=== PATIENT | male | born 1960 | race Two or more races ===

== ENCOUNTER 2024-12-29 23:56 | Inpatient (IN) | payer OTHER ==
[~2024-12-29] VITALS: Ht 182.9 cm; Wt 24.9 kg
[2024-12-30] MEDS ORDERED: XOPENEX HFA15 GM IH (00:17)
[2024-12-30] MEDS ORDERED: BUDESONIDE0.25 MG/2 (00:17)
[2024-12-30] MEDS ORDERED: XANAX2 MG PO (00:18)
[2024-12-30] MEDS ORDERED: NASAL MIST126 ML IH (00:18)
[2024-12-30] MEDS ORDERED: ARMOUR THYROID30 M1 PO (00:19)
[2024-12-30] MEDS ORDERED: COZAAR25 MG PO (00:20)
[2024-12-30] MEDS ORDERED: DEXILANT60 MG PO (00:21)
--- NOTE | 2024-12-30 00:41 | NUR ---
PTE ALERTA Y ORIENTADO X3 EN COMPANIA DE NUNEZ ESPOSA. PTE REFIERE PRESION EN EL PECHO DESDE ESTA TARDE. PTE COVID +
[2024-12-30] MEDS ORDERED: ORPHENADRINE CITRATE 30 MG/ML AMPUL IV STA (01:17)
[2024-12-30] MEDS ORDERED: METHYLPREDNISOLONE SOD SUCC 125 MG VIAL IV STA (01:17)
[2024-12-30] MEDS ORDERED: KETOROLAC TROMETHAMINE 30 MG VIAL IU STA (01:18)
[2024-12-30] MEDS ORDERED: LEVALBUTEROL HCL 0.63 MG/3 ML SOLUTION IH SCH ×2 (01:30→13:00)
[2024-12-30 02:17] LABS: BASO % 0.1 % (0.1-1.2); EOS # 0.01 (0.04-0.54); EOS % 0.1 % (0.7-7.0); LYMPH # 1.22 (1.18-3.74); LYMPH % 8.9 % (19.3-53.1); MEAN PLATELET VOLUME 10.00 fl (9.4-12.4); MONO # 1.38 (0.24-0.82); MONO % 10.1 % (4.7-12.5); NEUT # 10.97 (1.56-6.13); NEUT % 80.3 % (34.0-71.1); RED CELL DISTRIBUTION WIDTH 13.8 % (11.6-14.4)
[2024-12-30 02:46] LABS: INR 1.01
[2024-12-30 02:51] LABS: ALT/SGPT 72 U/L (12-78); AST/SGOT 61 U/L (15-37); BILIRUBIN TOTAL 0.48 mg/dL (0.3-1.2); BUN CREA RATIO 17 (7.0-25.0); CREATININE SERUM 1.19 mg/dL (0.70-1.30); GFR 61.74; GLOBULINA 3.4 G/DL (2.4-3.5); GLUCOSE FASTING 116 mg/dL (65-100); OSMOLALITY SERUM 285 MOSM/KG (275-295)
[2024-12-30 02:59] LABS: D DIMER < 0.19 MG/L
[2024-12-30 03:05] LABS: COVID-19 AG POSITIVE (NEGATIVE)
--- NOTE | 2024-12-30 03:05 | NUR ---
SE EDUCA A PACIENTE SOBRE TRATAMIENTO MEDICO EL CUAL REFIERE ENTENDER, SE REALIZA COLECCION DE MUESTRAS Y ADMINISTRACION DE MEDICAMENTO ELISEO ORDEN MEDICA Y BAJO MEDIDA ASEPTICA.
[2024-12-30 03:25] LABS: URINE APPEARANCE Clear; URINE BILIRRUBIN Negative (NEGATIVE); URINE BLOOD Negative; URINE COLOR Yellow; URINE GLUCOSE Negative (NEGATIVE); URINE KETONE Negative (NEGATIVE); URINE LEUKOCYTE Negative; URINE NITRATE Negative; URINE PROTEIN Negative (NEGATIVE); URINE UROBILINOGEN 0.2 E.U./dl
[2024-12-30 03:29] LABS: URINE BACTERIA 9.5 uL (0.0-1933); URINE EPITHELIAL CELLS 2.1 uL (0.0-38.8); URINE WBC 1.8 uL (0.0-23.2)
[2024-12-30 03:30] LABS: URINE CAST 0.00 uL (0.0-1.40); URINE RBC 0.8 uL (0.0-20.8)
[2024-12-30] MEDS ORDERED: NITROGLYCERIN IN 5 % DEXTROSE 250 ML IV SCH (04:06)
[2024-12-30] MEDS ORDERED: ENOXAPARIN SODIUM 30 MG/0.3 ML SYRINGE SUBCUTANEO SCH (04:06)
[2024-12-30] MEDS ORDERED: ONDANSETRON HCL 2 MG/ML VIAL IM STA (04:10)
[2024-12-30] MEDS ORDERED: ACETAMINOPHEN 500 MG GEL..CAP PO SCH (04:10)
[2024-12-30] MEDS ORDERED: FAMOTIDINE/PF 20 MG in 0.9 % SODIUM CHLORIDE 100 ML IV STA (04:10)
[2024-12-30] MEDS ORDERED: ATORVASTATIN CALCIUM 40 MG TABLET PO STA (04:11)
[2024-12-30] MEDS ORDERED: METOPROLOL TARTRATE 25 MG TABLET PO SCH ×3 (04:15→17:00)
[2024-12-30] MEDS ORDERED: 0.9 % SODIUM CHLORIDE 1,000 ML IV SCH (04:15)
[2024-12-30] MEDS ORDERED: ASPIRIN 325 MG TABLET.EC PO SCH (04:15)
[2024-12-30 06:38] LABS: ALT/SGPT 72.0 U/L (12-78); AST/SGOT 60.0 U/L (15-37); CHOL HDL RATIO 4.5 (0-5.0); HDL 37.0 mg/dl (40-60); LDH 195.0 U/L (87-241); LDL 110.0 mg/dl (0-130); VLDL 17.0 (0-39)
[2024-12-30 06:43] LABS: PHOSPHOKINASE CREATININE 746.0 U/L (39-308)
[2024-12-30 07:00] LABS: TSH 0.677 uIU/mL (0.358-3.74)
--- NOTE | 2024-12-30 07:00 | NUR ---
PTE ALERTA Y ORIENTADO X3, PTE EN CAMA EN POSICION SEMI SENTADA CONECTADA A MONITOR CARDIACO Y OXIMETRIA. PTE CON CANULA NASAL A 3LT LA CUAL TOLERA AL MOMENTO. PTE CANALIZADA EN BRAZO IZQ AREA URSULA DE EDEMA Y ENROJECIMIENTO. PTE RECIBIENDO DRIP DE TRIDIL @ 1ML/HR. PTE CON ABDOMEN BLANDO AL TACTO Y PERISTALSIS PRESENTE. PTE NO PRESENTA EDEMA EN EXTREMIDADES INFERIORES. SE NOTIFICA CT A SECRETARIA GRACE ABAD. SE MANTIENE BAJO OBSERVACION POR CAMBIO
[2024-12-30] MEDS ORDERED: REMDESIVIR 100 MG VIAL IV SCH (12:26)
[2024-12-30] MEDS ORDERED: CEFTRIAXONE SODIUM 2,000 MG in 0.9 % SODIUM CHLORIDE 100 ML IV SCH (12:26)
[2024-12-30] MEDS ORDERED: FAMOTIDINE/PF 20 MG in 0.9 % SODIUM CHLORIDE 8 ML IV PUSH SCH (12:28)
[2024-12-30] MEDS ORDERED: DEXAMETHASONE SODIUM PHOSPHATE 4 MG/ML VIAL IV SCH (12:40)
[2024-12-30 13:24] VITALS: BP 119/72; O2SAT 95
[2024-12-30 13:49] VITALS: BP 119/72
[2024-12-30 14:02] LABS: T4 FREE 0.61 NG/ML (0.76-1.46); TSH 0.35 uIU/mL (0.358-3.74)
[2024-12-30] MEDS ORDERED: ENOXAPARIN SODIUM 60 MG/0.6 ML SYRINGE SUBCUTANEO SCH (17:00)
[2024-12-30] MEDS ORDERED: REMDESIVIR 100 MG VIAL IV ONE (18:00)
[2024-12-30 18:09] VITALS: BP 120/80; O2SAT 97
[2024-12-31 03:24] VITALS: BP 104/56; O2SAT 97
[2024-12-31] MEDS ORDERED: LEVOTHYROXINE SODIUM 125 MCG TABLET PO SCH (06:00)
[2024-12-31 06:38] LABS: ALT/SGPT 58.0 U/L (12-78); AST/SGOT 27.0 U/L (15-37); BILIRUBIN TOTAL 0.28 mg/dL (0.3-1.2); BUN CREA RATIO 15.0 (7.0-25.0); CREATININE SERUM 1.21 mg/dL (0.70-1.30); GFR 60.57; GLOBULINA 2.4 G/DL (2.4-3.5); OSMOLALITY SERUM 292.0 MOSM/KG (275-295)
[2024-12-31 06:41] LABS: GLUCOSE FASTING 289.0 mg/dL (65-100)
[2024-12-31 08:43] VITALS: BP 115/60; O2SAT 97
[2024-12-31] MEDS ORDERED: ASPIRIN 81 MG TABLET.EC PO SCH (09:00)
[2024-12-31] MEDS ORDERED: REMDESIVIR 100 MG VIAL IV SCH (17:00)
[2024-12-31 17:14] VITALS: BP 123/78; O2SAT 95
[2025-01-01 02:47] VITALS: BP 125/88; O2SAT 95
[2025-01-01 08:57] VITALS: BP 129/72; O2SAT 94
[2025-01-01] MEDS ORDERED: LEVALBUTEROL HCL 0.63 MG/3 ML SOLUTION IH SCH (14:00)
[2025-01-01 17:55] VITALS: BP 127/75
[2025-01-02 10:19] VITALS: BP 111/74; O2SAT 98
== END 2025-01-02 16:11 | disposition home or self-care (01) | DRG 177 ==
LOC: ER 23:57 → MEDJ 12-30 13:03
PROVIDERS: General Practice; Physician Assistant Medical; ADMIT Internal Medicine; ATTEND Internal Medicine
PROC: BB24ZZZ Computerized Tomography (CT Scan) of Bilateral Lungs (ICD-10-PCS; principal; 2024-12-30)
PROC: B246ZZZ Ultrasonography of Right and Left Heart (ICD-10-PCS; 2024-12-30)
PROC: 3E0F7GC Introduction of Other Therapeutic Substance into Respiratory Tract, Via Natural or Artificial Opening (ICD-10-PCS; 2024-12-30)
PROC: 4A12X4Z Monitoring of Cardiac Electrical Activity, External Approach (ICD-10-PCS; 2024-12-30)
PROC: 8E0ZXY6 Isolation (ICD-10-PCS; 2024-12-30)
DX: U07.1 COVID-19 (principal); I21.4 Non-ST elevation (NSTEMI) myocardial infarction; J45.901 Unspecified asthma with (acute) exacerbation; I48.20 Chronic atrial fibrillation, unspecified; R09.02 Hypoxemia; E03.8 Other specified hypothyroidism; G47.33 Obstructive sleep apnea (adult) (pediatric)

== ENCOUNTER 2025-03-04 08:55 | Emergency (ER) | payer OTHER ==
[~2025-03-04] VITALS: Ht 182.9 cm; Wt 114.8 kg
[~2025-03-04 08:55] MED LIST: ARMOUR THYROID30 M1 PO; BUDESONIDE0.25 MG/2; COZAAR25 MG PO; DEXILANT60 MG PO; NASAL MIST126 ML IH; XANAX2 MG PO; XOPENEX HFA15 GM IH
[2025-03-04 09:16] VITALS: O2SAT 96
[2025-03-04] MEDS ORDERED: CEFTRIAXONE SODIUM 1,000 MG VIAL IM STA (09:29)
[2025-03-04] MEDS ORDERED: DEXAMETHASONE SODIUM PHOSPHATE 4 MG/ML VIAL IM STA (09:29)
[2025-03-04] MEDS ORDERED: GUAIFENESIN 200 MG/10 ML BLIST.PACK PO ONE (09:30)
[2025-03-04] MEDS ORDERED: ACETAMINOPHEN 500 MG GEL..CAP PO ONE (09:30)
[2025-03-04] MEDS ORDERED: CETIRIZINE HCL 10 MG TABLET PO ONE (09:45)
[2025-03-04 11:54] LABS: BASO % 0.5 % (0.1-1.2); EOS # 0.13 (0.04-0.54); EOS % 1.6 % (0.7-7.0); LYMPH # 1.10 (1.18-3.74); LYMPH % 13.4 % (19.3-53.1); MEAN PLATELET VOLUME 10.20 fl (9.4-12.4); MONO # 0.83 (0.24-0.82); MONO % 10.1 % (4.7-12.5); NEUT # 6.08 (1.56-6.13); NEUT % 73.9 % (34.0-71.1); RED CELL DISTRIBUTION WIDTH 13.1 % (11.6-14.4)
[2025-03-04 14:03] LABS: COVID-19 AG NEGATIVE (NEGATIVE)
[2025-03-04] MEDS ORDERED: AZITHROMYCIN500 MG PO (14:12)
[2025-03-04] MEDS ORDERED: ALLER-TEC10 MG PO (14:12)
[2025-03-04] MEDS ORDERED: TUSSIN DM LIQU118 ML PO (14:12)
[2025-03-04 15:19] VITALS: BP 125/85
== END 2025-03-04 15:19 | disposition home or self-care (01) ==
LOC: ER 08:56
PROVIDERS: General Practice
DX: J98.8 Other specified respiratory disorders (principal); Z20.822 Contact with and (suspected) exposure to COVID-19; Z88.8 Allergy status to other drugs, medicaments and biological substances; Z87.09 Personal history of other diseases of the respiratory system; Z91.013 Allergy to seafood